=== PATIENT | male | born 1960 | race Caucasian/White ===

== ENCOUNTER 2022-09-30 12:13 | Outpatient (REF) | payer BC, SELFPAY ==
[2022-09-30 12:52] LABS: COVID-19 Test Negative (Negative); IDNOW Serial# BCCEAD1C
== END 2022-09-30 12:14 | disposition home or self-care (01) ==
LOC: HO.LAB 12:13
PROVIDERS: Visit Provider Internal Medicine
DX: Z20.822 Contact with and (suspected) exposure to COVID-19 (principal)
CPT/HCPCS: 87635; C9803

== ENCOUNTER 2023-01-28 09:20 | Day surgery (SDC) | payer BC, SELFPAY ==
--- NOTE | 2023-01-27 09:15 | HO.ANESPROP2 ---
Documented by User: Emily Shepherd NP 01/27/23 09:15 HPI - Anesthesia Eval Consult details Narrative: 62yo M for Colonoscopy [facility] Past Medical History Medical History (Updated 01/27/23 @ 06:52 by Rin Cantor RN) High cholesterol Surgical History Surgical History (Updated 01/27/23 @ 06:52 by Rin Cantor RN) History of bilateral knee arthroplasty History of colonoscopy Social History Social History Patient Tobacco Use Status: Never used Tobacco Use of substances other than those prescribed or required for medical reasons: No Are you DNR?: No Advance Directives: No Advance Directives Information Provided: Yes Recently lost weight without trying: No Nutrition Risks: No Nutritional Risk Meds Allergies Allergy/AdvReac Type Severity Reaction Status Date / Time No Known Allergies Allergy Verified 01/28/23 09:48 Home Medications Medication Instructions Recorded Confirmed Last Taken Type meloxicam 15 mg tablet 15 mg PO DAILY PRN knee pain 01/27/23 01/28/23 Unknown History rosuvastatin 10 mg tablet 10 mg PO BEDTIME 01/27/23 01/28/23 Unknown History Exam Exam Date and Time: January 27, 2023 0915 Assessment and Plan Assessment Anesthesia Assessment: Chart Reviewed Documented by User: Carroll Coon MD 01/28/23 11:22 [facility] Past Medical History Medical History (Updated 01/27/23 @ 06:52 by Rin Cantor RN) High cholesterol Family History Family history of problems with anesthesia: No Surgical History Surgical History (Updated 01/27/23 @ 06:52 by Rin Cantor RN) History of bilateral knee arthroplasty History of colonoscopy History of Problems with Anesthesia: No Social History Social History Patient Tobacco Use Status: Never used Tobacco Use of substances other than those prescribed or required for medical reasons: No Are you DNR?: No Advance Directives: No Advance Directives Information Provided: Yes Recently lost weight without trying: No Nutrition Risks: No Nutritional Risk Meds Allergies Allergy/AdvReac Type Severity Reaction Status Date / Time No Known Allergies Allergy Verified 01/28/23 09:48 Home Medications Medication Instructions Recorded Confirmed Last Taken Type meloxicam 15 mg tablet 15 mg PO DAILY PRN knee pain 01/27/23 01/28/23 Unknown History rosuvastatin 10 mg tablet 10 mg PO BEDTIME 01/27/23 01/28/23 Unknown History Exam Airway Mallampati Class: I TM Dist: >3cm Neck ROM: Full Heart: ok Lungs: ok Assessment and Plan Assessment Anesthesia Assessment: Anesthesia Plan Discussed Final Anesthetic Review Family History of Problems with Anesthesia: No History of Problems with Anesthesia: No NPO: Yes ASA Class: II Final Preanesthetic Review: No Changes in Pt Med Stat, Meds/Allgs Chart Reviewed, Consent Obtained/Reviewed and Anes Risks/Benef Reviewed Patient Risk: Low Procedure Risk: Low Anesthetic Plan Anesthetic Plan: MAC: and Agree w/ Assess. and Plan Disposition: Standard PACU
[2023-01-28 09:50] VITALS: BMI 25.8
[2023-01-28 09:53] VITALS: BP 113/70; PULSE 66; RESP 16; TEMP 36.2; O2SAT 96
[2023-01-28] MEDS: Lactated Ringers 1,000 ML 100 ML IVCONT (10:07)
--- NOTE | 2023-01-28 10:56 | MHC.SHP ---
Pre-Procedural Eval Section A Date of Service: 01/28/23 The patient is an INPATIENT: No Changes since office visit: No Cold of Flu in the past 2 weeks, No New Medical Problems, No Changes in Medication and No Patient answered all questions The History & Physical has been completed within 30 days and I have reviewed it.: Yes Section B Chief Complaint: Encounter for screening for malignant neoplasm Allergies: Allergies Allergy/AdvReac Type Severity Reaction Status Date / Time No Known Allergies Allergy Verified 01/28/23 09:48 Plan I have reviewed the history and physical and performed a pertinent physical examination on my patient. No changes have occurred unless specified. Time Spent With Patient Time: Total time managing care of this patient today ____ minutes.
[2023-01-28 11:40] VITALS: BP 70/54; PULSE 60; RESP 20; TEMP 36.6; O2SAT 96
--- NOTE | 2023-01-28 11:43 | PM.OP ---
Brief Operative Note Date of Service: 01/28/23 Pre-op diagnosis: screening Post-op diagnosis: same Procedure: colonoscopy Surgeon: Ron Villanueva Anesthesia: MAC Was an Bus Person Dishwasher used for this Procedure?: No Estimated blood loss (mL): 2 Pathology: other Condition: stable Disposition: PACU
[2023-01-28 11:55] VITALS: BP 101/65; PULSE 60; RESP 16; TEMP 36.3; O2SAT 97
--- NOTE | 2023-01-28 13:28 | OP_ITS ---
DATE OF SERVICE: 01/28/2023 SURGEON: Ron Villanueva MD INDICATIONS: Colon cancer screening. PREOPERATIVE DIAGNOSIS: POSTOPERATIVE DIAGNOSIS: PROCEDURE PERFORMED: Colonoscopy to the terminal ileum with biopsy. ESTIMATED BLOOD LOSS: COMPLICATIONS: ANESTHESIA: Monitored anesthesia care. ASSISTANTS: SPECIMENS: DESCRIPTION OF PROCEDURE: A history and physical was performed. The risks and benefits of the procedure were explained to the patient, and an informed consent was obtained. The patient was placed in the left lateral decubitus position. A digital rectal exam was performed and was found to be normal. The Olympus pediatric video colonoscope was introduced into the rectum and advanced to the cecum without difficulty. The cecum was identified by transillumination, palpation, and identification of the ileocecal valve. Examination was performed. The scope was removed. He tolerated the procedure well and was returned to the recovery area in stable condition. FINDINGS: The terminal ileum was examined and appeared normal. The visualized colonic mucosa was normal. The quality of the prep was good. A less than 5 mm polyp in the cecum was removed with the biopsy forceps. No other polyps were identified. Retroflexed examination showed moderate-sized internal hemorrhoids. IMPRESSION: Colon polyp. RECOMMENDATION: Follow up the biopsy results. MD KATHLEEN Cardona/RENATA / [id number]
== END 2023-01-28 12:20 | disposition home or self-care (01) ==
PROVIDERS: PCP Internal Medicine; Visit Provider Internal Medicine Gastroenterology
PROC: 0DJD8ZZ Inspection of Lower Intestinal Tract, Via Natural or Artificial Opening Endoscopic (ICD-10-PCS; CPT 45378; principal; 2023-01-28 11:30)
DX: Z12.11 Encounter for screening for malignant neoplasm of colon (principal); Z86.010 Personal history of colon polyps; K63.5 Polyp of colon; K64.8 Other hemorrhoids; E78.00 Pure hypercholesterolemia, unspecified; Z79.1 Long term (current) use of non-steroidal anti-inflammatories (NSAID); Z79.899 Other long term (current) drug therapy
CPT/HCPCS: 45380; 88305

== ENCOUNTER 2025-08-16 10:48 | Outpatient (AMB) | payer BC, SELFPAY ==
--- NOTE | 2025-08-16 11:05 | HO.SPINEOV ---
Vital Signs 08/16/25 11:07 Height 5 ft 10 in Weight 170 lb BMI 24.4 Intake Visit Reasons: low back pain Intake Note: Mr. Rosenthal is here today c/o low back pain. MRI done at [facility]. Package Liner Required: No Allergies No Known Allergies Allergy (Verified 01/28/23 09:48) Physical Exam Vital Signs: BMI result Body Mass Index 24.4 Assessment & Plan Assessment & Plan (1) Lumbar stenosis with neurogenic claudication: Code(s): M48.062 - Spinal stenosis, lumbar region with neurogenic claudication Category: Medical Plan Dear colleague Thank you for referring Leslie Marquez to the office today with a chief complaint of back pain. HPI: This 64-year-old gentleman is suffering from back pain that started in May 2025. The back pain radiates into his leg and feet which causes spasm tightness and pins and needles in the legs. Pain goes into his quadriceps into his calves and feet. The pain is varying from 6 to 8/10. He can not walk or stand for any length of time before the symptoms started. Sitting down improves the symptoms. He did a steroid injection at [employer] without success. He saw Dr. Ardon, orthopedic surgeon for an opinion, who offered him a lumbar decompression L4-5. The following conservative treatment options were tried without success antiinflammatories, tylenol, physical therapy, chiropractic therapy and cortisone shots PMH: Hypercholesterolemia, bilateral knee replacement in 2024 Medications: Rosuvastatin Allergies: NKDA Social history: , retired. Nonsmoker Physical Exam: Pleasant male height 5'10 weight 170 lb. He ambulates with a cane. No motor or sensory deficits. Straight leg raise is negative. He is able to reproduce the symptoms in the office after short period of standing. He develops paresthesias. Radiological Studies: MRI done at [facility] on 05/19/2025 shows [id number] L4-5 central spinal stenosis. Impression/Plan: This patient is suffering from classic neurogenic claudication symptoms due to an L4-5 spinal stenosis. I offered him an L4-5 decompression on 09/05/2025. Thank you for allowing me to participate in your patients care. total time spent was 50 minutes in counseling ,coordination of plan, personal review of imaging, surgical decision making and subsequent plan Bart Ventura MD, PhD Spine Fellowship Trained Neurosurgeon Director, [facility] Coding Level of Care Code New Pt Level 4 (45852) Diagnoses Lumbar stenosis with neurogenic claudication M48.062
[2025-08-16 11:07] VITALS: BMI 24.4
== END 2025-08-16 13:13 | disposition home or self-care (01) ==
LOC: HO.HNS 10:49
PROVIDERS: PCP Internal Medicine; Visit Provider Neurological Surgery
DX: M48.062 Spinal stenosis, lumbar region with neurogenic claudication (principal)
CPT/HCPCS: 99204

== ENCOUNTER 2025-09-05 08:27 | Day surgery (SDC) | payer BC, SELFPAY ==
[2025-09-02 09:10] VITALS: BP 141/86; PULSE 84; RESP 16; O2SAT 97; BMI 25.3
--- NOTE | 2025-09-02 09:22 | HO.ANESPROP2 ---
Documented by User: Emily Shepherd NP 09/03/25 08:46 HPI - Anesthesia Eval Consult details Narrative: 64yo M for L4-5 Lumbar Decompression, 09/05/25 [facility] admit 06/2025 post TKA. Patient admitted June 09 to June 11, 2025.? History is that of him having?had a?right total knee arthroplasty?prior to ER visit.? Patient?when his nerve block was wearing off from his surgery he developed increased pain.? Unable to control with oral pain medicine and then started getting short of breath and came to the emergency room. ?In the ER he was found to be hypoxic to 85%.? Also in severe pain. ?He was given pain medication via IV and placed on 4 L nasal cannula.? Further evaluation was done showing a chest x-ray with atelectasis. ?A CTA was performed which showed no signs of pulmonary embolus.? Patient was admitted to the orthopedic unit for pain control and PT evaluation.? His hypoxia was transient and improved?without any further treatment. ?He was weaned off oxygen?pain became controlled with medication and was sent home?with pain medicine, muscle relaxants. ?He did have transient low sodium while in the hospital and they wanted to be followed as an outpatient. Labs drawn with PAT. Ashley SANCHEZ Active Problems Active Problems: All Active Problems Lumbar stenosis with neurogenic claudication (Acute) Past Medical History Medical History Gonarthrosis Lumbar radiculopathy Spinal stenosis of lumbar region Lumbar spondylosis Osteoarthritis High cholesterol Family History Family history of problems with anesthesia: No Surgical History Surgical History Hx of hernia repair (~2018) History of epidural steroid injection into lumbar spine (08/01/25) Hx of total knee arthroplasty (12/14/24) History of total right knee replacement (06/07/25) History of colonoscopy (2022) History of Problems with Anesthesia: No Social History Social History Are you a primary health care recruiter to a significant other at home: No Do you presently have visiting nurse or other home services: No Patient Tobacco Use Status: Never used Tobacco Use of substances other than those prescribed or required for medical reasons: No Have you been hit, kicked, punched, or otherwise hurt by someone within the past year? If so, by whom?: No Are you DNR?: No Advance Directives: No Advance Directives Information Provided: Yes Advance Directives on File: No Meds Allergies Allergy/AdvReac Type Severity Reaction Status Date / Time No Known Allergies Allergy Verified 01/28/23 09:48 Home Medications ?Medication ?Instructions ?Recorded ?Confirmed ?Last Taken ?Type rosuvastatin 10 mg tablet 10 mg PO BEDTIME 01/27/23 09/02/25 Unknown History tizanidine 2 mg tablet 2 mg PO BID 09/02/25 09/02/25 Unknown History Exam Height,Weight and Vital Signs: Height 5 ft 10 in Weight 79.832 kg Last Vital Signs Pulse 84 09/02/25 09:10 Resp 16 09/02/25 09:10 BP 141/86 H 09/02/25 09:10 Pulse Ox 97 09/02/25 09:10 O2 Del Method Room Air 09/02/25 09:10 Pertinent Lab Results Pertinent Lab Results: Lab Results 09/02/25 Range/Units 09:43 WBC 7.9 (4.8-10.8) X10*3/uL RBC 4.99 (4.60-5.80) X10*6/uL Hgb 15.0 (14.0-18.0) g/dl Hct 43.1 (42.0-52.0) % MCV 86.4 (80.0-98.0) fL MCH 30.1 (27.0-33.0) pg MCHC 34.8 (31.0-36.0) g/dl RDW 12.4 (11.0-16.0) % Plt Count 261 (160-400) X10*3/uL MPV 9.3 L (9.4-12.4) fL Absolute Nucleated RBC 0.000 (0.0-0.012) X10*3/uL Nucleated RBC % (auto) 0.0 (0.0-0.2) /100WBC Sodium 141 (135-145) mmol/L Potassium 4.4 (3.3-5.1) mmol/L Chloride 107 (96-108) mmol/L Carbon Dioxide 27 (22-29) mmol/L Anion Gap 11 L (12-20) BUN 16 (9-16) mg/dL Creatinine 0.68 (0.5-1.4) mg/dL Estim Creat Clear Calc 111.8 Estimated GFR > 60 Random Glucose 98 (60-115) mg/dL Calcium 9.6 (8.4-10.2) mg/dL Narrative Narrative: EKG 05/2025 Ventricular Rate: 69 BPM Atrial Rate: 69 BPM P-R Interval: 152 ms QRS Duration: 86 ms Q-T Interval: 380 ms QTC Calculation(Bazett): 407 ms P Newport: 45 degrees R Newport: 14 degrees T Newport: 37 degrees Normal sinus rhythm Normal ECG When compared with ECG of 27-Nov-2024 12:12, No significant change was found Confirmed by DIEGO SINCLAIR MD ([id number]) on 05/20/2025 1:18:25 PM Airway Mallampati Class: II TM Dist: >3cm Neck ROM: Full Loose/Missing/Broken Teeth: No (implants top front, crowned molars) Heart: RRR Lungs: CTAB Assessment and Plan Assessment Anesthesia Assessment: Anesthesia Plan Discussed and PAT Visit Final Anesthetic Review Family History of Problems with Anesthesia: No History of Problems with Anesthesia: No Documented by User: Nereida Victor MD 09/05/25 09:14 [facility] Past Medical History Medical History Gonarthrosis Lumbar radiculopathy Spinal stenosis of lumbar region Lumbar spondylosis Osteoarthritis High cholesterol Surgical History Surgical History Hx of hernia repair (~2018) History of epidural steroid injection into lumbar spine (08/01/25) Hx of total knee arthroplasty (12/14/24) History of total right knee replacement (06/07/25) History of colonoscopy (2022) Social History Social History Are you a primary health care recruiter to a significant other at home: No Do you presently have visiting nurse or other home services: No Patient Tobacco Use Status: Never used Tobacco Use of substances other than those prescribed or required for medical reasons: No Have you been hit, kicked, punched, or otherwise hurt by someone within the past year? If so, by whom?: No Are you DNR?: No Advance Directives: No Advance Directives Information Provided: Yes Advance Directives on File: No Meds Allergies Allergy/AdvReac Type Severity Reaction Status Date / Time No Known Allergies Allergy Verified 01/28/23 09:48 Home Medications ?Medication ?Instructions ?Recorded ?Confirmed ?Last Taken ?Type rosuvastatin 10 mg tablet 10 mg PO BEDTIME 01/27/23 09/02/25 Unknown History tizanidine 2 mg tablet 2 mg PO BID 09/02/25 09/02/25 Unknown History Assessment and Plan Assessment Anesthesia Assessment: Chart Reviewed Final Anesthetic Review NPO: Yes ASA Class: II Final Preanesthetic Review: No Changes in Pt Med Stat, Meds/Allgs Chart Reviewed, Consent Obtained/Reviewed and Anes Risks/Benef Reviewed Patient Risk: Low Procedure Risk: Intermediate Anesthetic Plan Anesthetic Plan: GA and Agree w/ Assess. and Plan Disposition: Standard PACU
[2025-09-02 10:37] LABS: Hematocrit 43.1 % (42.0-52.0); Hemoglobin 15.0 g/dl (14.0-18.0); Mean Corpuscular HGB Conc 34.8 g/dl (31.0-36.0); Mean Corpuscular Hemoglobin 30.1 pg (27.0-33.0); Mean Corpuscular Volume 86.4 fL (80.0-98.0); NRBC Abs Auto 0.000 X10*3/uL (0.0-0.012); NRBC Pct Auto 0.0 /100WBC (0.0-0.2); Platelet Count 261 X10*3/uL (160-400); Red Blood Count 4.99 X10*6/uL (4.60-5.80); White Blood Count 7.9 X10*3/uL (4.8-10.8)
[2025-09-02 11:41] LABS: Anion Gap 11 (12-20); Blood Urea Nitrogen 16 mg/dL (9-16); Calcium 9.6 mg/dL (8.4-10.2); Carbon Dioxide 27 mmol/L (22-29); Chloride 107 mmol/L (96-108); Creatinine Clr Calc Pharmacy 111.8; Estimated Glomerular Filt Rate > 60; Potassium 4.4 mmol/L (3.3-5.1); Sodium 141 mmol/L (135-145)
[2025-09-05] VITALS (9 sets, daily range): BP systolic 105–123; BP diastolic 53–83; PULSE 73–90; RESP 10–18; TEMP 36.1–36.9; O2SAT 96–100; BMI 24.8
--- NOTE | ~2025-09-05 | FL_ITS ---
EXAMINATION: FL GUIDANCE ONLY HISTORY: L4-5 Decompression COMPARISON: Correlation is made to plain films of the lumbar spine dated 11/23/2008. TECHNIQUE: Fluoroscopy time: 5 seconds. Cumulative Dose: 1.80 mGy. DAP: 6 1.49 uGym2 Images: 1. FINDINGS: A single fluoroscopic spot film of the lumbar spine in the lateral projection demonstrates a probe directed toward a lower intervertebral disc space. It is uncertain which disc space this represents based on these images. FL/FL guidance in OR IMPRESSION: Fluoroscopy during procedure. Please see procedure report for additional information. Electronically signed by: Abdiel Patino MD 09/05/2025 02:20 PM [facility]
--- NOTE | 2025-09-05 07:35 | P.DS_ITS ---
DS: Providers Provider Date of Service: 09/05/25 Date of discharge: 09/05/25 Primary care physician: Louie Smart MD Admitting clinician: Bart Ventura DS: Diagnosis Discharge Diagnosis (1) Lumbar stenosis with neurogenic claudication: Status: Acute DS: Summary Time Attestation Discharge Coordination Time (in mins): 5 Quality: Safe Use of Opioids Does Pt have an Active Cancer Diagnosis on the Problem List?: No Quality: Stroke Does the patient have a stroke diagnosis?: No Physical Exam Vital Signs: Vital Signs: Last Vital Signs Pulse 84 09/02/25 09:10 Resp 16 09/02/25 09:10 BP 141/86 H 09/02/25 09:10 Pulse Ox 97 09/02/25 09:10 O2 Del Method Room Air 09/02/25 09:10 BMI result Body Mass Index 25.3 Discharge Plan Discharge Patient Disposition: Home, Self-Care Referrals: Louie Smart MD [Primary Care Provider, Internal Medicine] - 1 Week Discharge Medications: New docusate sodium [Colace] 100 mg capsule 100 mg PO BID Qty: 20 0RF oxycodone 5 mg tablet 5 mg PO Q4H PRN (Reason: pain) Qty: 20 0RF Rx Instructions: Partial Fill upon patient request. Continued rosuvastatin 10 mg tablet 10 mg PO BEDTIME tizanidine 2 mg tablet 2 mg PO BID Discharge Orders: Discharge Order (Routine); Ordered 09/05/25 Ordered By: Dariusz Pérez Diet: Advance to usual diet Activity on Discharge: As tolerated Activity Restrictions/Additional Instructions: After your spinal surgery we ask you to observe the following restrictions/guidelines: Activity: It is normal to feel some discomfort as you increase your activity, but that will improve with time. We ask you avoid heavy lifting or acitivities that cause pain. As a general rule, 8lbs is a safe limit for lifting right after surgery. Walk as much as you feel comfortable but not to exhaustion. You will feel extra tired the first few days after surgery. Stay well hydrated. It is OK to walk up and down stairs You may return to driving when you are off narcotics (such as vicodin, oxycodone, dilaudid, etc), and you are back to normal functional capacity. If you have any concerns please check with office before driving. Return to work is specific to each patient and each surgery, so please speak with your doctor/PA at first follow up. Please bring paperwork such as FMLA at that time if you need it filled out. Medications: For optimum pain control, it is best to start with a combination of 500 mg of Tylenol every 4 hours with 600 mg of Motrin every 8 hours, and use narcotics as needed in between for breakthrough pain. We will give you a short supply of narcotics after surgery (usually one weeks worth). If you need more please call the office but do not use more than prescribed. You will need to give our office 48 hours notice if you need narcotics refilled and we do not fill narcotics on weekends or evenings. If you are on a narcotic, it is a good idea to take a stool softener such as colace or senna to avoid constipation If you take blood thinner such as aspirin, Plavix, Coumadin, Effient, Eliquis etc for conditions such as Afib, DVT, Pulmonary embolus, coronary disease, stents etc please speak with your surgeon about specific details as to when you can resume these medications. Follow up: Please call the office, , after surgery to arrange a 3 week follow up for wound check. Wound Care: You may remove your dressing on the first day after surgery. ?You may ?leave open to air. Please do not remove the steri strips underneath. they will fall off on their own in one week. IT IS NORMAL FOR THE WOUND TO OOZE OR BE BLOODY FOR A FEW DAYS AFTER SURGERY. ?IF THIS HAPPENS JUST PLACE NEW DRESSING OVER IT TO AVOID STAINING CLOTHES. You may shower on post op day # 1 We ask that you do not let the water soak the wound. If it does get wet, just towel dry lightly. Please do not scrub your incision or place any type of chemical/ointment on the wound. No tub baths, pools or jacuzzis for one month. If you have any leaking or redness from your wound, or fevers, please call office Print Language: Icelandic
[2025-09-05] MEDS: Lactated Ringers 1,000 ML 100 ML IVCONT (08:57)
--- NOTE | 2025-09-05 09:46 | MHC.SHP ---
Pre-Procedural Eval Section A - 24 Hr Update-Section A only Date of Service: 09/05/25 The patient is an INPATIENT: No Section B - Complete if H&P > 30 days Chief Complaint: Spinal stenosis, lumbar region with neurogenic Details of Present Illness: Bilateral leg pain Allergies: Allergies Allergy/AdvReac Type Severity Reaction Status Date / Time No Known Allergies Allergy Verified 01/28/23 09:48 Review of Systems Sugical H&P ROS: Negative: Constitution, Cardiovascular, Respiratory, Neurological, Psychiatric, Hem-Onc, Allergic/Immunologic, Gastrointestinal, Genitourinary, Musculoskeletal, Integumentary, Endocrine and Eyes/Ears/Nose/Throat Exam Surgical H&P Exam: Normal: HEENT, Normal: Heart, Normal: Lungs, Normal: Extremities, Normal: Abdomen, Normal: Skin and Normal: Neurological (Awake, alert) Plan Diagnosis/Plan: Unchanged L4-5 decompression Time Spent With Patient Time: Total time managing care of this patient today __5__ minutes.
--- NOTE | 2025-09-05 11:57 | P.OP_ITS ---
Operative Note Operative Note Date of Service: 09/05/25 Narrative: Preoperative Diagnosis: L4-5 spinal stenosis/lateral recess stenosis/neural foraminal stenosis Operation: L4-5 Laminotomy, Partial facetectomy and foraminotomy with use of microscope Consent Informed Consent was obtained for this operation. I have explained the nature, purpose and benefits of the operation. I have discussed the risks and benefit of the operation including possible complications or adverse events with patient/family. Alternative(s) were discussed with the patient with their relative benefits and risks as well as the consequences of not accepting the operation were included in obtaining consent. Surgeon: YUSRA HUANG MD, PHD Procedure Assisted By: Dariusz Ridley Description of Procedure This patient is suffering from neurogenic claudication. MRI shows [id number] spinal stenosis L4-5. The patient was offered a decompression. The procedure complications were explained. The patient was consented. The patient was brought to the operating room and endotracheally intubated. The patient was turned in prone position on the Jose frame. Prep and drape was done followed by timeout. The Physician billing and accounting staff assistant provided access. A mid lumbar incision was made followed by release of the paravertebral muscle right side to expose the L4-5 lamina and facet joints. An intraoperative x-ray was obtained to confirm the correct level. The microscope was brought in. I took over the procedure. The high-speed drill was used to do a L4-L5 laminotomy until flavum ligament was reached. A #2 Kerrison was used to expand the laminotomy near flush to the pedicles and to include a partial facetectomy. The flavum ligament was opened and resected with a #3 Kerrison to decompress the underlying thecal sac. The flavum ligament was removed to decompress the lateral recess and the exiting L5 nerve root. Then the patient was turned contralaterally. The spinous process was undercut. In this way I was able to reach the contralateral side into a move the flavum ligament to decompress the contralateral L5 nerve root.. A long nerve hook could be easily passed along the medial side of the pedicles as a sign of adequate decompression. The microscope was removed. Hemostasis was done. The physician billing and accounting staff assistant close the incision in 2 layers. Steri-Strips were used to approximate incision. An OpSite with Tegaderm was used to cover the incision. All sponge needle counts were correct. Patient was extubated and transported in stable is to recovery room. Anesthesia: General Estimated Blood Loss (ml): 20 Complications: None Duration of Surgery: Under 60 Minutes Postoperative Plan: Discharge to home
== END 2025-09-05 13:24 | disposition home or self-care (01) ==
LOC: HO.SSS 08:28
PROVIDERS: Nurse Practitioner; PCP Internal Medicine; Visit Provider Neurological Surgery
PROC: (CPT 63047; principal; 2025-09-05 11:30)
DX: M48.062 Spinal stenosis, lumbar region with neurogenic claudication (principal); M54.50 Low back pain, unspecified; R20.0 Anesthesia of skin; R20.2 Paresthesia of skin; R26.2 Difficulty in walking, not elsewhere classified; Z96.653 Presence of artificial knee joint, bilateral; Z99.89 Dependence on other enabling machines and devices; E78.00 Pure hypercholesterolemia, unspecified; Z79.899 Other long term (current) drug therapy
CPT/HCPCS: 63047; 36415; 80048; 85027; J0131; J0690; J1100; J1885; J2003; J2250; J2405; J2704; J3010

== ENCOUNTER → 2025-09-05 08:27 | Outpatient (BNV) | payer BC, SELFPAY | PROVIDERS: PCP Internal Medicine; Visit Provider Neurological Surgery | DX: M48.062 Spinal stenosis, lumbar region with neurogenic claudication (principal) | CPT/HCPCS: 63047; 99499 ==

== ENCOUNTER 2025-09-25 10:48 | Outpatient (AMB) | payer BC, SELFPAY ==
--- OUTSIDE RECORDS SUMMARY | 2025-09-25 10:51 | XMS_ITS | Patient Health Record ---
[facility] Organization [facility] Address [address] [place] [id number] Care Team Providers Care Installer Technician Name Role Phone Louie Smart MD Primary Care Provider Ron Larson Jr Allergies No Known Allergies Reason For Referral No Information Medications Medication SIG (Take, Route, Frequency, Duration) Notes Start Date End Date Status Rosuvastatin Calcium 10 MG Tablet 1 tablet Orally Once a day; Duration: 30 day(s) Active Meloxicam 15 MG Tablet 1 tablet Orally O nce a day; Duration: 30 day(s) Active Multivitamins Active Immunizations Vaccine Route Administration Date Status Comme nts Influenza Unknown 08/24/2022 Administered Social History Social History Drugs/Alcohol: Social Info Question Answer Notes Alcohol Screen Did you have a drink containing alcohol in the past year? No Points 0 Interpretation Negative Additional Details Category Social Info Options Details Miscellaneous: Marital status: Occupation: aerospace Problems Problem Type SNOMED Code ICD Code Onset Dates Problem Status W/U Status Risk Notes Problem Colon cancer screening (733757454) Colon cancer screening (Z12.11) Active confirmed Problem History of polyp of colon (situation) (516288355) Personal history of colonic polyps (Z86.010) Active confirmed Problem Pre-procedure evaluation check (904100402) Encounter for other preprocedural examination (Z01.818) Active confirmed Problem halfway current use of non-steroidal anti-inflammat ory drug (0864655443342 03) NSAID long-term use (Z79.1) Active confirmed Plan Of Treatment Future Test Test Name Order Date COLONOSCOPY 03/22/2012 COLONOSCOPY 11/18/2017 COLONOSCOPY 01/12/2023 Insurance Providers Payer Name Payer Address Payer Phone Subscriber Number Group Number Insured Name Patient Relationship to Insured Coverage Start Date Coverage End Date [facility] [address] [place], [place] [id number] JEWELS MALDONADO Self - patient is the insured Medical (General) History Medical History History ICD Code colonoscopy 02/15/18, five-ye ar followup due to personal history of colon polyps Elevated cholesterol Surgical History Surgery Date(Month/Year) right and left knee surgery
--- NOTE | 2025-09-25 10:52 | A.SPINEOV_ITS ---
Intake Visit Reasons: 1st post op Intake Note: Mr. Rosenthal is here today for his 1st post op. Allergies No Known Allergies Allergy (Verified 01/28/23 09:48) Assessment & Plan Assessment & Plan (1) Lumbar stenosis with neurogenic claudication: Code(s): M48.062 - Spinal stenosis, lumbar region with neurogenic claudication Category: Medical Plan Operation: L4-5 Laminotomy, Partial facetectomy and foraminotomy Abdirahman is a pleasant 64 year old male who comes in today for his 1st postoperative visit after having the above mentioned procedure completed by Dr. Ventura. HE FEELS THAT OVERALL HE HAS DONE WELL SINCE HIS SURGERY, AND STATES THAT HIS LOW BACK PAIN feels better than it did preoperatively. Unfortunately he still has quite a bit of cramping/spasms and pain in his bilateral anterior thighs, which has persisted despite the surgery. He expressed some concerns regarding this. We discussed the postoperative healing course, and I encouraged him that this likely will resolve as time progresses. No new neurological deficits. The patient ambulates well and rises from a seated position without difficulty. He uses no assistive devices to ambulate. His posterior incision site is closed and well healing, with no signs of erythema or drainage. I would like to follow up with Abdirahman again in 6 weeks for his 2nd postoperative visit. I will send in a course of muscle relaxers at his request for the anterior thigh spasming. Juvencio Ventura MD,PhD [facility] Medications: Changed From tizanidine 2 mg PO BID To tizanidine 2 mg PO BID PRN 20 tabs 0RF muscle spasms Coding Level of Care Code Global (54115) Diagnoses Lumbar stenosis with neurogenic claudication M48.062
--- OUTSIDE RECORDS SUMMARY | 2025-09-25 10:52 | XMS_ITS | Patient Health Record ---
Author Organization [facility] Address [address] [place] [address] Care Team Providers Care Asset Protection Agent Name Role Phone Louie Smart MD Primary Care Provider Janae Quiñonez Unavailable [phone] Reason For Referral No Information Problems Problem Type SNOMED Code ICD Code Onset Dates Problem Status W/U Status Risk Notes Problem Arthralgia (23689035) Arthralgia (719.40) Active confirmed Problem Disorder of joint of ankle and/or foot (771845559) Arthritis - Degenerative (719.97) Active confirmed Problem Exostosis (83435132) Exostosis (726.91) Active confirmed Plan Of Treatment No Information Insurance Providers Payer Name Payer Address Payer Phone Subscriber Number Group Number Insured Name Patient Relationship to Insured Coverage Start Date Coverage End Date [facility] [employer] [address] [place] [address] [phone] [id number] Abdirahman Rosenthal Self - patient is the insured 1 Medical (General) History Medical History History ICD Code chicken pox back, hip, knee pain Surgical History Surgery Date(Month/Year) knee surgery, right knee surgery, left 09/2012
== END 2025-09-25 11:32 | disposition home or self-care (01) ==
LOC: HO.HNS 10:48
PROVIDERS: PCP Internal Medicine; Visit Provider Physician Assistant
DX: M48.062 Spinal stenosis, lumbar region with neurogenic claudication (principal)
CPT/HCPCS: 99024